=== PATIENT | male | born 1965 | race Caucasian/White ===

== ENCOUNTER 2020-05-31 09:24 | Inpatient (IN) ==
[2020-05-31] MEDS ORDERED: VANCOMYCIN INJ 1,000 MG in SODIUM CHLORIDE 0.9% 250 ML IV ONE (09:45)
[2020-05-31] MEDS ORDERED: GLUCAGON 1 MG VIAL IM PRN (09:45)
[2020-05-31] MEDS ORDERED: DEXTROSE 50% 25 GM/50 ML VIAL IV PRN (09:45)
[2020-05-31 10:40] LABS: Basophils % 0.5 % (0.0-0.8); Eosinophils # 0.2 10*3/uL (0.0-0.87); Hematocrit 46.4 VOL% (42.0-52.0); Hemoglobin 15.3 GM/DL (14.0-18.0); Immature Granulocytes % 0.5 %; Immature Granulocytes Absolute 0.04 #; Lymphocytes # 1.9 10*3/uL (1.4-4.0); Lymphocytes % 24.8 % (21.2-54.2); Mean Corpuscular Volume 90.1 FL (87-102); Mean Platelet Volume 10.2 FL (9.6-12.0); Monocytes % 9.6 % (1.7-12.7); Neutrophils % 62.6 % (38.7-73.9); Platelet Count 198 T/CUMM (130-400); Red Blood Count 5.15 MC/CUMM (3.8-5.5); White Blood Count 7.6 T/CUMM (4-12)
[2020-05-31] MEDS ORDERED: FAMOTIDINE 20 MG TABLET PO ONE (11:01)
[2020-05-31] MEDS ORDERED: DIAZEPAM 5 MG TABLET PO ONE (11:01)
[2020-05-31 11:04] LABS: Bilirubin,Total 0.6 MG/DL (0.2-1.0); Calcium 9.4 MG/DL (8.5-10.1); Osmolality,Calculated 271.2 MOS/KG (273-304); Potassium 4.5 MMOL/L (3.5-5.1); Total Protein 7.6 G/DL (6.4-8.3)
[2020-05-31 11:56] LABS: ABG Base Excess 1.3 MMOL/L (-2.5-2.5); ABG HCO3 25.5 MMOL/L (20-26); ABG Oxygen Saturation 97.1 % (95-100); ABG PCO2 41.8 MM HG (35-48); ABG PH 7.406 (7.35-7.45); ABG PO2 94.6 MM HG (80-95); ABG TCO2 22.1 MMOL/L (23-27)
[2020-05-31] MEDS ORDERED: CLORAZEPATE 3.75 MG TABLET PO PRN (13:22)
[2020-05-31] MEDS ORDERED: ZALEPLON 5 MG CAPSULE PO PRN (13:23)
[2020-05-31] MEDS: CHLORHEXIDINE 4% SOLN 118 ML BOTTLE TOP SCH ×2 (16:42→20:59)
[2020-05-31] MEDS: CHLORHEXIDINE 0.12% ORAL RINSE 60 ML BOTTLE SWISH/SPIT SCH (20:55)
[2020-05-31] MEDS: SODIUM CHLORIDE 0.9% 1,000 ML IV SCH (20:55)
[2020-05-31] MEDS: hydrALAZINE 25 MG TABLET PO SCH (20:56)
[2020-05-31] MEDS ORDERED: PANTOPRAZOLE 40 MG TABLET PO SCH (21:00)
[2020-05-31] MEDS ORDERED: amLODIPine 10 MG TABLET PO SCH (21:00)
[2020-05-31] MEDS ORDERED: rOPINIRole 1 MG TABLET PO SCH (21:00)
[2020-05-31] MEDS ORDERED: MELOXICAM 7.5 MG TABLET PO SCH (21:00)
[2020-06-01] MEDS ORDERED: PAPAVERINE 60 MG/2 ML VIAL ONE (04:20)
[2020-06-01] MEDS ORDERED: VANCOMYCIN 500 MG VIAL ONE (04:21)
[2020-06-01] MEDS ORDERED: VANCOMYCIN 1,000 MG VIAL ONE (04:21)
[2020-06-01] MEDS ORDERED: AMINOCAPROIC ACID 5,000 MG/20 ML VIAL ONE ×4 (05:40→05:41)
[2020-06-01] MEDS ORDERED: MIDAZOLAM 10 MG/2 ML VIAL ONE ×4 (05:45)
[2020-06-01] MEDS ORDERED: CALCIUM CHLORIDE 1,000 MG/10 ML VIAL IV ONE ×3 (05:45→11:12)
[2020-06-01] MEDS ORDERED: ETOMIDATE 40 MG/20 ML VIAL IV ONE ×2 (05:45→05:49)
[2020-06-01] MEDS ORDERED: VECURONIUM 10 MG VIAL IV ONE (05:45)
[2020-06-01] MEDS ORDERED: LIDOCAINE 2% 5 ML VIAL ONE ×2 (05:45→10:33)
[2020-06-01] MEDS ORDERED: SUFentanil 250 MCG/5 ML AMP ONE ×4 (05:46)
[2020-06-01] MEDS ORDERED: SEVOFLURANE 1 UNIT/15 MINUTE INH ONE (05:49)
[2020-06-01] MEDS ORDERED: MINERAL OIL/PETROLATUM OPH OINT 3.5 GM TUBE ONE (05:57)
[2020-06-01] MEDS ORDERED: FAMOTIDINE 20 MG TABLET PO ONE (06:00)
[2020-06-01] MEDS ORDERED: VANCOMYCIN INJ 1,000 MG in SODIUM CHLORIDE 0.9% 250 ML IV ONE (06:00)
[2020-06-01] MEDS ORDERED: DIAZEPAM 5 MG TABLET PO ONE ×2 (06:00)
[2020-06-01] MEDS ORDERED: EPINEPHrine 1 MG/10 ML SYRINGE ONE ×2 (07:02→07:59)
[2020-06-01 07:42] LABS: ABG HCO3 24.4 MMOL/L (20-26); ABG Oxygen Saturation 99.9 % (95-100); ABG PCO2 34.1 MM HG (35-48); ABG PH 7.443 (7.35-7.45); ABG TCO2 19.9 MMOL/L (23-27); Glucose Heart Surgery 141 MG/DL (74-106); Hematocrit Heart Surgery 44.5 PERCENT (42-52); Hemoglobin Heart Surgery 14.5 G/DL (14.0-18.0); Ionized Calcium Arterial 1.26 MMOL/L (1.21-1.46); PCO2 Patient Temp Arterial 34.1 MMHG; PH Patient Temp Arterial 7.443; Patient Temperature 37 CELCIUS; Potassium Heart/CVR 3.9 MMOL/L (3.5-5.1); Sodium Heart/CVR 139 MMOL/L (135-145)
[2020-06-01] MEDS ORDERED: NITROPRUSSIDE 50 MG/2 ML VIAL ONE (07:57)
[2020-06-01] MEDS ORDERED: POTASSIUM CHLORIDE RIDER 100 ML IV ONE (07:57)
[2020-06-01] MEDS ORDERED: PHENYLEPHRINE DRIP 40 MG/250 ML PREMIX IV ONE (07:58)
[2020-06-01] MEDS ORDERED: ATROPINE 1 MG/10 ML SYRINGE ONE (07:59)
[2020-06-01] MEDS ORDERED: LIDOCAINE 100 MG/5 ML SYRINGE ONE (07:59)
[2020-06-01] MEDS ORDERED: ALBUMIN 5% 12.5 GM/250 ML VIAL IV ONE ×2 (07:59)
[2020-06-01 08:04] LABS: Bacteria,Urine Occasional /HPF (Few); Bilirubin,Urine Negative (Negative); Blood, Urine Small mg/dL (Negative); Glucose,Urine (UA) Negative (Negative); Ketones,Urine Negative (Negative); Mucus,Urine Few /LPF (Occasional); Nitrite,Urine Negative (Negative); Protein,Urine Negative; RBC,Urine 2 /HPF (0-4); Squamous Epithelial Cell,Urine Occasional /HPF (0-10); Urine Appearance CLEAR (Clear); Urine Color Yellow (Yellow); Urine Specific Gravity 1.026 (1.001-1.035); Urine Urobilinogen < 2.0 EU/DL (0.2-1.0); WBC,Urine <1 /HPF (0-6)
[2020-06-01 08:33] LABS: Hematocrit Heart Surgery 34.4 PERCENT (42-52); Hemoglobin Heart Surgery 11.2 G/DL (14.0-18.0); PCO2 Patient Temp Venous 35.6 MM HG; PH Patient Temp Venous 7.453; Potassium Heart/CVR 4.3 MMOL/L (3.5-5.1); VBG Base Excess 1.3 MEQ/L (0-4); VBG HCO3 25.2 MEQ/L (24-28); VBG Oxygen Saturation 80.6 %; VBG PCO2 41.1 MMHG (41-51); VBG PH 7.409; VBG PO2 45.5 MMHG (17-40); VBG Total CO2 23.4 MMOL/L
[2020-06-01] MEDS ORDERED: NITROGLYCERIN DRIP 50 MG/250 ML BOTTLE IV ONE (08:37)
[2020-06-01] MEDS ORDERED: PHENYLEPHRINE DRIP 20 MG/250 ML PREMIX IV ONE (08:37)
[2020-06-01] MEDS ORDERED: HEPARIN/NACL 0.9% 2 UNITS/ML 500 ML IV ONE (08:37)
[2020-06-01 09:07] LABS: Hemoglobin Heart Surgery 11.9 G/DL (14.0-18.0); PCO2 Patient Temp Venous 35.7 MM HG; PH Patient Temp Venous 7.468; PO2 Patient Temp Venous 37.5 MM HG; Potassium Heart/CVR 5.1 MMOL/L (3.5-5.1); VBG Base Excess 1.5 MEQ/L (0-4); VBG Oxygen Saturation 80.6 %; VBG PCO2 40.7 MMHG (41-51); VBG PH 7.423; VBG PO2 46.3 MMHG (17-40); VBG Total CO2 27.2 MMOL/L
[2020-06-01 09:38] LABS: Hematocrit Heart Surgery 38.9 PERCENT (42-52); Hemoglobin Heart Surgery 12.6 G/DL (14.0-18.0); PH Patient Temp Venous 7.461; PO2 Patient Temp Venous 38.5 MM HG; VBG Base Excess 2.1 MEQ/L (0-4); VBG HCO3 25.9 MEQ/L (24-28); VBG Oxygen Saturation 82.3 %; VBG PCO2 41.7 MMHG (41-51); VBG PH 7.417; VBG PO2 47.4 MMHG (17-40); VBG Total CO2 23.7 MMOL/L
[2020-06-01 09:40] LABS: Potassium Heart/CVR 6.2 MMOL/L (3.5-5.1)
[2020-06-01 10:08] LABS: Hemoglobin Heart Surgery 12.6 G/DL (14.0-18.0); PCO2 Patient Temp Venous 41.8 MM HG; PH Patient Temp Venous 7.402; PO2 Patient Temp Venous 47.2 MM HG; VBG Base Excess 0.6 MEQ/L (0-4); VBG HCO3 25.4 MEQ/L (24-28); VBG Oxygen Saturation 80.1 %; VBG PCO2 41.8 MMHG (41-51); VBG PH 7.402; VBG PO2 47.2 MMHG (17-40); VBG Total CO2 26.7 MMOL/L
[2020-06-01] MEDS ORDERED: methylPREDNISolone SOD SUC 1,000 MG/8 ML VIAL ONE (10:33)
[2020-06-01] MEDS ORDERED: ALBUMIN 25% 25 GM/100 ML VIAL IV ONE (10:33)
[2020-06-01] MEDS ORDERED: MANNITOL 100 GM/500 ML BAG IV ONE (10:33)
[2020-06-01] MEDS ORDERED: DEXTROSE 5% KCL 20 MEQ 20 MEQ/1,000 ML BAG IV ONE (10:33)
[2020-06-01] MEDS ORDERED: HEPARIN 10,000 UNIT/10 ML VIAL ONE (10:33)
[2020-06-01] MEDS ORDERED: MAGNESIUM SULFATE 5 GM/10 ML VIAL IV ONE (10:33)
[2020-06-01] MEDS ORDERED: PROTAMINE SULFATE 250 MG/25 ML VIAL IV ONE (10:33)
[2020-06-01] MEDS ORDERED: SODIUM BICARBONATE 50 MEQ/50 ML VIAL IV ONE (10:34)
[2020-06-01] MEDS ORDERED: FUROSEMIDE 20 MG/2 ML VIAL ONE (10:34)
[2020-06-01 10:39] LABS: ABG Base Excess -0.5 MMOL/L (-2.5-2.5); ABG HCO3 24.1 MMOL/L (20-26); ABG Oxygen Saturation 99.4 % (95-100); ABG PH 7.371 (7.35-7.45); ABG TCO2 21.9 MMOL/L (23-27); Glucose Heart Surgery 161 MG/DL (74-106); Hematocrit Heart Surgery 39.5 PERCENT (42-52); Hemoglobin Heart Surgery 12.8 G/DL (14.0-18.0); Ionized Calcium Arterial 1.39 MMOL/L (1.21-1.46); PH Patient Temp Arterial 7.371; Patient Temperature 37 CELCIUS; Potassium Heart/CVR 4.5 MMOL/L (3.5-5.1); Sodium Heart/CVR 135 MMOL/L (135-145)
[2020-06-01] MEDS ORDERED: THROMBIN TOPICAL (RECOMBINANT) 5,000 UNIT VIAL TOP ONE (10:48)
[2020-06-01] MEDS: CHLORHEXIDINE 4% SOLN 118 ML BOTTLE TOP SCH (11:13)
[2020-06-01] MEDS: SODIUM CHLORIDE 0.9% 1,000 ML IV SCH (11:13)
[2020-06-01] MEDS: hydrALAZINE 25 MG TABLET PO SCH (11:13)
[2020-06-01] MEDS: CHLORHEXIDINE 0.12% ORAL RINSE 60 ML BOTTLE SWISH/SPIT SCH (11:13)
[2020-06-01] MEDS: ALBUMIN 5% 12.5 GM in PREMIX 1 EACH IV PRN ×4 (12:00→16:15)
[2020-06-01] MEDS ORDERED: LACTATED RINGERS 1,000 ML IV ONE (12:00)
[2020-06-01] MEDS ORDERED: PROTAMINE SULFATE 50 MG/5 ML VIAL IV ONE ×2 (12:00→12:02)
[2020-06-01] MEDS ORDERED: MIDAZOLAM 2 MG/2 ML VIAL ONE (12:00)
[2020-06-01] MEDS ORDERED: MAGNESIUM SULF RIDER 4 GM in PREMIX 1 EACH IV PRN (12:05)
[2020-06-01] MEDS ORDERED: POTASSIUM CHLORIDE RIDER 10 MEQ in PREMIX 1 EACH IV PRN (12:05)
[2020-06-01] MEDS ORDERED: MAGNESIUM SULF RIDER 2 GM in PREMIX 1 EACH IV PRN (12:05)
[2020-06-01] MEDS ORDERED: INSULIN REGULAR 100 UNIT/ML IV ONE (12:05)
[2020-06-01] MEDS ORDERED: CHLORHEXIDINE 4% SOLN 118 ML BOTTLE TOP PRN (12:05)
[2020-06-01] MEDS ORDERED: LACTATED RINGERS 250 ML IV PRN (12:05)
[2020-06-01] MEDS ORDERED: INSULIN REGULAR 100 UNIT/ML IV PRN (12:05)
[2020-06-01] MEDS ORDERED: VECURONIUM 10 MG VIAL IV PRN ×2 (12:05)
[2020-06-01] MEDS ORDERED: MORPHINE 10 MG/1 ML VIAL IV PRN (12:05)
[2020-06-01] MEDS ORDERED: PHENYLEPHRINE DRIP 40 MG/250 ML PREMIX IV PRN (12:05)
[2020-06-01] MEDS ORDERED: MIDAZOLAM 10 MG/2 ML VIAL IV PRN (12:05)
[2020-06-01] MEDS ORDERED: NITROPRUSSIDE 100 MG in DEXTROSE 5% 250 ML IV PRN (12:05)
[2020-06-01] MEDS ORDERED: DEXTROSE 50% 25 GM/50 ML VIAL IV PRN ×2 (12:05)
[2020-06-01] MEDS ORDERED: CALCIUM CHLORIDE 1,000 MG/10 ML SYRINGE IV PRN (12:05)
[2020-06-01] MEDS ORDERED: MIDAZOLAM 2 MG/2 ML VIAL IV PRN (12:05)
[2020-06-01] MEDS ORDERED: ACETAMINOPHEN 650 MG SUPP RECTAL PRN (12:05)
[2020-06-01] MEDS ORDERED: POTASSIUM CHLORIDE RIDER 20 MEQ in PREMIX 1 EACH IV PRN (12:05)
[2020-06-01] MEDS ORDERED: INSULIN REGULAR DRIP 100 ML IV SCH (12:05)
[2020-06-01] MEDS ORDERED: ONDANSETRON 4 MG/2 ML VIAL IV PRN (12:05)
[2020-06-01] MEDS ORDERED: SODIUM CHLORIDE 0.45% 1,000 ML IV SCH ×2 (12:05)
[2020-06-01 12:10] LABS: ABG Base Excess -1.2 MMOL/L (-2.5-2.5); ABG HCO3 23.4 MMOL/L (20-26); ABG Oxygen Saturation 98.2 % (95-100); ABG PCO2 29.8 MM HG (35-48); ABG PH 7.466 (7.35-7.45); ABG PO2 99.2 MM HG (80-95); ABG TCO2 18.9 MMOL/L (23-27); Glucose Heart Surgery 141 MG/DL (74-106); Hematocrit Heart Surgery 37.8 PERCENT (42-52); Hemoglobin Heart Surgery 12.3 G/DL (14.0-18.0); Potassium Heart/CVR 4.1 MMOL/L (3.5-5.1)
[2020-06-01 12:19] LABS: INR 1.2; PT Patient Result 12.6 SECS (9.8-11.9); Partial Thromboplastin Time 27.7 SECS (23.9-33.8)
[2020-06-01 12:28] LABS: Albumin 3.1 G/DL (3.4-5.0); Bilirubin,Total 0.8 MG/DL (0.2-1.0); Calcium 9.4 MG/DL (8.5-10.1); Osmolality,Calculated 279.7 MOS/KG (273-304); Potassium 4.3 MMOL/L (3.5-5.1); Total Protein 5.6 G/DL (6.4-8.3)
[2020-06-01 12:29] LABS: CKMB % 8.4 %
[2020-06-01 12:39] LABS: Troponin I 7.11 NG/ML (0.00-0.045)
[2020-06-01] MEDS: LACTATED RINGERS 1,000 ML IV PRN ×3 (13:00→16:04)
[2020-06-01 13:23] LABS: Basophils % 0.3 % (0.0-0.8); Eosinophils # 0.1 10*3/uL (0.0-0.87); Eosinophils % 0.4 % (0.00-10.9); Hematocrit 37.5 VOL% (42.0-52.0); Hemoglobin 12.2 GM/DL (14.0-18.0); Immature Granulocytes Absolute 0.15 #; Lymphocytes # 1.2 10*3/uL (1.4-4.0); Mean Corpuscular HGB Conc 32.5 GM/DL (32-36); Mean Corpuscular Volume 91.7 FL (87-102); Mean Platelet Volume 10.4 FL (9.6-12.0); Monocytes % 4.9 % (1.7-12.7); Neutrophils % 85.4 % (38.7-73.9); Platelet Count 168 T/CUMM (130-400); Red Blood Count 4.09 MC/CUMM (3.8-5.5); Red Cell Distribution Width 14.1 % (9.3-17.3); White Blood Count 15.5 T/CUMM (4-12)
[2020-06-01 14:43] LABS: ABG Base Excess -1.7 MMOL/L (-2.5-2.5); ABG HCO3 21.5 MMOL/L (20-26); ABG Oxygen Saturation 98.2 % (95-100); ABG PCO2 31.3 MM HG (35-48); ABG PH 7.454 (7.35-7.45); ABG PO2 119.9 MM HG (80-95); ABG TCO2 22.4 MMOL/L (23-27); Glucose Heart Surgery 171 MG/DL (74-106); Hemoglobin Heart Surgery 11.3 G/DL (14.0-18.0); Potassium Heart/CVR 4.3 MMOL/L (3.5-5.1)
[2020-06-01 17:29] LABS: ABG Base Excess -2.7 MMOL/L (-2.5-2.5); ABG HCO3 22.1 MMOL/L (20-26); ABG Oxygen Saturation 95.8 % (95-100); ABG PCO2 38.9 MM HG (35-48); ABG PH 7.366 (7.35-7.45); ABG PO2 84.3 MM HG (80-95); ABG TCO2 20.2 MMOL/L (23-27); Glucose Heart Surgery 216 MG/DL (74-106); Hematocrit Heart Surgery 32.6 PERCENT (42-52); Hemoglobin Heart Surgery 10.6 G/DL (14.0-18.0); Potassium Heart/CVR 4.6 MMOL/L (3.5-5.1)
[2020-06-01] MEDS: MORPHINE 4 MG/1 ML VIAL IV PRN ×2 (19:21→22:31)
[2020-06-01 19:24] LABS: ABG Base Excess -4.7 MMOL/L (-2.5-2.5); ABG HCO3 20.4 MMOL/L (20-26); ABG Oxygen Saturation 92.8 % (95-100); ABG PCO2 47.6 MM HG (35-48); ABG PH 7.278 (7.35-7.45); ABG PO2 78.9 MM HG (80-95); ABG TCO2 20.3 MMOL/L (23-27); Glucose Heart Surgery 226 MG/DL (74-106); Hematocrit Heart Surgery 34.2 PERCENT (42-52); Hemoglobin Heart Surgery 11.1 G/DL (14.0-18.0); Potassium Heart/CVR 4.6 MMOL/L (3.5-5.1)
[2020-06-01] MEDS ORDERED: FUROSEMIDE 40 MG/4 ML VIAL IV ONE (19:31)
[2020-06-01] MEDS: ALBUTEROL/IPRATROPIUM 3 ML NEB RESP TX SCH (19:43)
[2020-06-01 19:50] LABS: Troponin I 10.8 NG/ML (0.00-0.045)
[2020-06-01] MEDS ORDERED: CHLORHEXIDINE 0.12% ORAL RINSE 60 ML BOTTLE SWISH/SPIT SCH (21:00)
[2020-06-01] MEDS ORDERED: rOPINIRole 4 MG TABLET PO SCH (21:00)
[2020-06-01] MEDS: VANCOMYCIN INJ 1,000 MG in SODIUM CHLORIDE 0.9% 250 ML IV SCH (23:13)
[2020-06-02] MEDS: ALBUTEROL/IPRATROPIUM 3 ML NEB RESP TX SCH ×4 (01:29→19:42)
[2020-06-02] MEDS: MORPHINE 4 MG/1 ML VIAL IV PRN ×3 (03:48→07:36)
[2020-06-02 04:05] LABS: ABG HCO3 23.5 MMOL/L (20-26); ABG Oxygen Saturation 91.4 % (95-100); ABG PCO2 42.1 MM HG (35-48); ABG PH 7.369 (7.35-7.45); ABG PO2 64.5 MM HG (80-95); ABG TCO2 22.1 MMOL/L (23-27); Glucose Heart Surgery 138 MG/DL (74-106); Hematocrit Heart Surgery 31.6 PERCENT (42-52); Hemoglobin Heart Surgery 10.2 G/DL (14.0-18.0); Potassium Heart/CVR 4.6 MMOL/L (3.5-5.1)
[2020-06-02 04:09] LABS: Basophils % 0.1 % (0.0-0.8); Hematocrit 30.8 VOL% (42.0-52.0); Immature Granulocytes % 0.7 %; Immature Granulocytes Absolute 0.13 #; Lymphocytes # 0.6 10*3/uL (1.4-4.0); Lymphocytes % 3.2 % (21.2-54.2); Mean Corpuscular HGB Conc 32.1 GM/DL (32-36); Mean Corpuscular Volume 92.8 FL (87-102); Mean Platelet Volume 10.1 FL (9.6-12.0); Monocytes % 6.3 % (1.7-12.7); Neutrophils % 89.7 % (38.7-73.9); Platelet Count 168 T/CUMM (130-400); Red Blood Count 3.32 MC/CUMM (3.8-5.5); Red Cell Distribution Width 14.3 % (9.3-17.3); White Blood Count 19.7 T/CUMM (4-12)
[2020-06-02 04:20] LABS: Hemoglobin 9.9 GM/DL (14.0-18.0)
[2020-06-02 04:27] LABS: Albumin 3.9 G/DL (3.4-5.0); Bilirubin,Direct 0.14 MG/DL (0.0-0.20); Bilirubin,Total 0.7 MG/DL (0.2-1.0); Calcium 8.7 MG/DL (8.5-10.1); Osmolality,Calculated 286.3 MOS/KG (273-304); Potassium 4.6 MMOL/L (3.5-5.1); Total Protein 6.2 G/DL (6.4-8.9)
[2020-06-02 04:28] LABS: CKMB % 11.3 %
[2020-06-02 04:44] LABS: Band Neutrophils 1 % (0-10); Hypochromasia 1+; Lymphocytes 8 % (20-55); Microcytosis 1+; Segmented Neutrophils 90 % (50-85); Total Cells Counted 100
[2020-06-02] MEDS ORDERED: FUROSEMIDE 40 MG/4 ML VIAL IV ONE (05:11)
[2020-06-02] MEDS: oxyCODONE/ACETAMINOPHEN 5-325 MG TABLET PO PRN ×4 (08:18→21:01)
[2020-06-02] MEDS ORDERED: GLUCAGON 1 MG VIAL IM PRN (08:50)
[2020-06-02] MEDS ORDERED: ONDANSETRON 4 MG/2 ML VIAL IV PRN (08:50)
[2020-06-02] MEDS ORDERED: ALUMINUM/MAGNES/SIMETH MAX STR 30 ML UDCUP PO PRN (08:50)
[2020-06-02] MEDS ORDERED: POTASSIUM CHLORIDE 20 MEQ TABLET PO PRN (08:50)
[2020-06-02] MEDS ORDERED: ACETAMINOPHEN 325 MG TABLET PO PRN (08:50)
[2020-06-02] MEDS ORDERED: MAGNESIUM HYDROXIDE SUSP 30 ML UDCUP PO PRN (08:50)
[2020-06-02] MEDS ORDERED: DEXTROSE 50% 25 GM/50 ML VIAL IV PRN (08:50)
[2020-06-02] MEDS ORDERED: MAGNESIUM SULF RIDER 2 GM in PREMIX 1 EACH IV PRN (08:50)
[2020-06-02] MEDS ORDERED: MAGNESIUM SULF RIDER 4 GM in PREMIX 1 EACH IV PRN (08:50)
[2020-06-02] MEDS: ASPIRIN EC 325 MG TABLET PO SCH (09:06)
[2020-06-02] MEDS: PANTOPRAZOLE 40 MG TABLET PO SCH (09:06)
[2020-06-02] MEDS: DOCUSATE SODIUM 100 MG CAPSULE PO SCH (09:06)
[2020-06-02] MEDS: FERROUS SULFATE 325 MG TABLET PO SCH (09:50)
[2020-06-02] MEDS: SODIUM CHLOR 0.45% KCL 20 MEQ 20 MEQ/1,000 ML BAG IV SCH (10:00)
[2020-06-02] MEDS: CHLORHEXIDINE 0.12% ORAL RINSE 60 ML BOTTLE SWISH/SPIT SCH ×2 (10:01→21:44)
[2020-06-02] MEDS: VANCOMYCIN INJ 1,000 MG in SODIUM CHLORIDE 0.9% 250 ML IV SCH ×2 (12:12→22:46)
[2020-06-02 13:07] LABS: CKMB % 8.5 %
[2020-06-02 13:21] LABS: Troponin I 13.4 NG/ML (0.00-0.045)
[2020-06-02] MEDS: ZALEPLON 5 MG CAPSULE PO PRN (21:05)
[2020-06-03] MEDS: ALBUTEROL/IPRATROPIUM 3 ML NEB RESP TX SCH ×4 (01:45→19:42)
[2020-06-03] MEDS: oxyCODONE/ACETAMINOPHEN 5-325 MG TABLET PO PRN ×4 (01:56→22:13)
[2020-06-03] MEDS ORDERED: FUROSEMIDE 40 MG/4 ML VIAL IV ONE ×2 (06:00→06:54)
[2020-06-03 06:10] LABS: Basophils % 0.1 % (0.0-0.8); Hematocrit 26.8 VOL% (42.0-52.0); Hemoglobin 8.7 GM/DL (14.0-18.0); Immature Granulocytes % 1.1 %; Immature Granulocytes Absolute 0.19 #; Lymphocytes # 1.2 10*3/uL (1.4-4.0); Lymphocytes % 6.7 % (21.2-54.2); Mean Corpuscular HGB Conc 32.5 GM/DL (32-36); Mean Corpuscular Volume 93.1 FL (87-102); Mean Platelet Volume 11.1 FL (9.6-12.0); Monocytes % 9.9 % (1.7-12.7); Neutrophils % 82.2 % (38.7-73.9); Platelet Count 125 T/CUMM (130-400); Red Blood Count 2.88 MC/CUMM (3.8-5.5); Red Cell Distribution Width 14.6 % (9.3-17.3); White Blood Count 17.9 T/CUMM (4-12)
[2020-06-03] MEDS ORDERED: HYDROmorphone 2 MG/1 ML VIAL IV PRN (06:26)
[2020-06-03 06:30] LABS: Albumin 3.4 G/DL (3.4-5.0); Bilirubin,Direct 0.14 MG/DL (0.0-0.20); Bilirubin,Total 0.5 MG/DL (0.2-1.0); Calcium 8.4 MG/DL (8.5-10.1); Osmolality,Calculated 278.1 MOS/KG (273-304); Potassium 4.5 MMOL/L (3.5-5.1); Total Protein 6.5 G/DL (5.0-7.5)
[2020-06-03 06:34] LABS: Albumin 3.5 G/DL (3.4-5.0); Bilirubin,Direct 0.16 MG/DL (0.0-0.20); Bilirubin,Indirect 0.7 MG/DL (0.0-1.0); Bilirubin,Total 0.9 MG/DL (0.2-1.0); CKMB % 3.8 %; Total Protein 6.1 G/DL (5.0-7.5)
[2020-06-03 06:37] LABS: Troponin I 7.96 NG/ML (0.00-0.045)
[2020-06-03] MEDS: DOCUSATE SODIUM 100 MG CAPSULE PO SCH (09:14)
[2020-06-03] MEDS: FERROUS SULFATE 325 MG TABLET PO SCH (09:15)
[2020-06-03] MEDS: ASPIRIN EC 325 MG TABLET PO SCH (09:15)
[2020-06-03] MEDS: PANTOPRAZOLE 40 MG TABLET PO SCH (09:15)
[2020-06-03] MEDS: SODIUM CHLOR 0.45% KCL 20 MEQ 20 MEQ/1,000 ML BAG IV SCH (09:24)
[2020-06-03] MEDS: VANCOMYCIN INJ 1,000 MG in SODIUM CHLORIDE 0.9% 250 ML IV SCH (11:00)
[2020-06-03] MEDS: CHLORHEXIDINE 0.12% ORAL RINSE 60 ML BOTTLE SWISH/SPIT SCH ×2 (13:03→21:58)
[2020-06-04] MEDS: ALBUTEROL/IPRATROPIUM 3 ML NEB RESP TX SCH ×4 (01:43→19:26)
[2020-06-04] MEDS: ZALEPLON 5 MG CAPSULE PO PRN (02:01)
[2020-06-04 05:54] LABS: Basophils % 0.1 % (0.0-0.8); Eosinophils % 0.1 % (0.00-10.9); Hemoglobin 7.9 GM/DL (14.0-18.0); Immature Granulocytes % 0.8 %; Immature Granulocytes Absolute 0.13 #; Lymphocytes # 1.2 10*3/uL (1.4-4.0); Lymphocytes % 7.8 % (21.2-54.2); Mean Corpuscular HGB Conc 31.6 GM/DL (32-36); Mean Corpuscular Volume 95.1 FL (87-102); Mean Platelet Volume 11.1 FL (9.6-12.0); Monocytes % 10.7 % (1.7-12.7); Neutrophils % 80.5 % (38.7-73.9); Platelet Count 117 T/CUMM (130-400); Red Blood Count 2.63 MC/CUMM (3.8-5.5); Red Cell Distribution Width 14.6 % (9.3-17.3); White Blood Count 15.4 T/CUMM (4-12)
[2020-06-04 06:20] LABS: Albumin 3.1 G/DL (3.4-5.0); Bilirubin,Direct 0.14 MG/DL (0.0-0.20); Bilirubin,Total 0.5 MG/DL (0.2-1.0); Calcium 8.7 MG/DL (8.5-10.1); Osmolality,Calculated 268.5 MOS/KG (273-304); Potassium 4.3 MMOL/L (3.5-5.1); Total Protein 6.9 G/DL (5.0-7.5)
[2020-06-04 06:22] LABS: Alanine Aminotransferase 38 U/L (16-61); Albumin 3.2 G/DL (3.4-5.0); Alkaline Phosphatase 45 U/L (45-117); Aspartate Amino Transferase 35 U/L (0-37); Bilirubin,Indirect 0.4 MG/DL (0.0-1.0); Total Protein 6.9 G/DL (5.0-7.5)
[2020-06-04] MEDS ORDERED: FUROSEMIDE 40 MG/4 ML VIAL IV SCH (09:00)
[2020-06-04] MEDS: FERROUS SULFATE 325 MG TABLET PO SCH (09:45)
[2020-06-04] MEDS: DOCUSATE SODIUM 100 MG CAPSULE PO SCH (09:45)
[2020-06-04] MEDS: ASPIRIN EC 325 MG TABLET PO SCH (09:45)
[2020-06-04] MEDS: oxyCODONE/ACETAMINOPHEN 5-325 MG TABLET PO PRN ×2 (09:46→21:04)
[2020-06-04] MEDS: PANTOPRAZOLE 40 MG TABLET PO SCH (09:46)
[2020-06-04] MEDS: METOPROLOL TARTRATE 25 MG TABLET PO SCH ×2 (15:33→21:03)
[2020-06-04] MEDS: CHLORHEXIDINE 0.12% ORAL RINSE 60 ML BOTTLE SWISH/SPIT SCH ×2 (15:33→21:07)
[2020-06-04] MEDS: ASCORBIC ACID 500 MG TABLET PO SCH ×2 (15:33→21:03)
[2020-06-04] MEDS: ROSUVASTATIN 20 MG TABLET PO SCH (21:04)
[2020-06-04] MEDS: rOPINIRole 4 MG TABLET PO SCH (21:04)
[2020-06-05] MEDS: oxyCODONE/ACETAMINOPHEN 5-325 MG TABLET PO PRN ×2 (00:57→20:20)
[2020-06-05] MEDS: ALBUTEROL/IPRATROPIUM 3 ML NEB RESP TX SCH ×5 (00:59→19:55)
[2020-06-05 05:51] LABS: Basophils % 0.1 % (0.0-0.8); Eosinophils % 0.1 % (0.00-10.9); Hematocrit 25.2 VOL% (42.0-52.0); Hemoglobin 8.1 GM/DL (14.0-18.0); Immature Granulocytes Absolute 0.15 #; Lymphocytes # 1.6 10*3/uL (1.4-4.0); Lymphocytes % 10.7 % (21.2-54.2); Mean Corpuscular HGB Conc 32.1 GM/DL (32-36); Mean Corpuscular Volume 92.6 FL (87-102); Mean Platelet Volume 11.2 FL (9.6-12.0); NRBC # 0.03 10*3/uL; Neutrophils % 80.1 % (38.7-73.9); Platelet Count 148 T/CUMM (130-400); Red Blood Count 2.72 MC/CUMM (3.8-5.5); Red Cell Distribution Width 14.6 % (9.3-17.3); White Blood Count 15.1 T/CUMM (4-12)
[2020-06-05 06:51] LABS: Osmolality,Calculated 273.4 MOS/KG (273-304); Potassium 4.3 MMOL/L (3.5-5.1)
[2020-06-05] MEDS ORDERED: LACTULOSE 20 GM/30 ML UDCUP PO PRN (08:02)
[2020-06-05] MEDS ORDERED: LACTULOSE 20 GM/30 ML UDCUP PO ONE (08:02)
[2020-06-05] MEDS: METOPROLOL TARTRATE 25 MG TABLET PO SCH ×2 (09:55→20:15)
[2020-06-05] MEDS: ASPIRIN EC 325 MG TABLET PO SCH (09:55)
[2020-06-05] MEDS: FERROUS SULFATE 325 MG TABLET PO SCH (09:56)
[2020-06-05] MEDS: ASCORBIC ACID 500 MG TABLET PO SCH ×2 (09:56→20:14)
[2020-06-05] MEDS: DOCUSATE SODIUM 100 MG CAPSULE PO SCH (09:56)
[2020-06-05] MEDS: PANTOPRAZOLE 40 MG TABLET PO SCH (09:56)
[2020-06-05] MEDS: POLYETHYLENE GLYCOL POWDER 17 GM PACK PO SCH (09:58)
[2020-06-05] MEDS: FUROSEMIDE 40 MG TABLET PO SCH (10:02)
[2020-06-05] MEDS: POTASSIUM CHLORIDE 10 MEQ TABLET PO SCH (10:02)
[2020-06-05] MEDS: CHLORHEXIDINE 0.12% ORAL RINSE 60 ML BOTTLE SWISH/SPIT SCH ×2 (10:08→20:16)
[2020-06-05] MEDS: AMIODARONE 200 MG TABLET PO SCH ×2 (18:06→20:15)
[2020-06-05] MEDS: amLODIPine 5 MG TABLET PO SCH (20:14)
[2020-06-05] MEDS: rOPINIRole 4 MG TABLET PO SCH (20:14)
[2020-06-05] MEDS: ROSUVASTATIN 20 MG TABLET PO SCH (20:15)
[2020-06-05] MEDS: ZALEPLON 5 MG CAPSULE PO PRN (20:16)
[2020-06-06] MEDS: ALBUTEROL/IPRATROPIUM 3 ML NEB RESP TX SCH ×4 (00:27→20:00)
[2020-06-06] MEDS: oxyCODONE/ACETAMINOPHEN 5-325 MG TABLET PO PRN ×2 (01:14→21:03)
[2020-06-06 06:03] LABS: Basophils % 0.2 % (0.0-0.8); Eosinophils # 0.1 10*3/uL (0.0-0.87); Eosinophils % 0.8 % (0.00-10.9); Hematocrit 27.4 VOL% (42.0-52.0); Hemoglobin 8.5 GM/DL (14.0-18.0); Immature Granulocytes Absolute 0.26 #; Lymphocytes # 2.1 10*3/uL (1.4-4.0); Mean Corpuscular Volume 95.5 FL (87-102); Mean Platelet Volume 10.6 FL (9.6-12.0); Monocytes % 10.3 % (1.7-12.7); Neutrophils % 70.7 % (38.7-73.9); Platelet Count 192 T/CUMM (130-400); Red Blood Count 2.87 MC/CUMM (3.8-5.5); Red Cell Distribution Width 14.4 % (9.3-17.3)
[2020-06-06 06:22] LABS: Calcium 8.7 MG/DL (8.5-10.1); Osmolality,Calculated 277.8 MOS/KG (273-304); Potassium 4.1 MMOL/L (3.5-5.1)
[2020-06-06 06:39] LABS: Alanine Aminotransferase 64 U/L (16-61); Albumin 3.2 G/DL (3.4-5.0); Alkaline Phosphatase 65 U/L (45-117); Aspartate Amino Transferase 35 U/L (0-37); Bilirubin,Indirect 0.8 MG/DL (0.0-1.0); Blood Urea Nitrogen 28 MG/DL (7-18); Calcium 8.3 MG/DL (8.5-10.1); Carbon Dioxide 27 MMOL/L (21-32); Estimated Glom Filtration Rate 103 ML/MIN; Glucose 96 MG/DL (74-106); Osmolality,Calculated 278.8 MOS/KG (273-304); Potassium 4.3 MMOL/L (3.5-5.1); Sodium 137 MMOL/L (136-145); Total Protein 6.5 G/DL (5.0-7.5)
[2020-06-06] MEDS ORDERED: AMIODARONE 200 MG TABLET PO SCH (06:52)
[2020-06-06] MEDS: DOCUSATE SODIUM 100 MG CAPSULE PO SCH (08:35)
[2020-06-06] MEDS: ASPIRIN EC 325 MG TABLET PO SCH (08:35)
[2020-06-06] MEDS: POTASSIUM CHLORIDE 10 MEQ TABLET PO SCH (08:37)
[2020-06-06] MEDS: FERROUS SULFATE 325 MG TABLET PO SCH (08:37)
[2020-06-06] MEDS: ASCORBIC ACID 500 MG TABLET PO SCH ×2 (08:38→21:08)
[2020-06-06] MEDS: PANTOPRAZOLE 40 MG TABLET PO SCH (08:38)
[2020-06-06] MEDS: FUROSEMIDE 40 MG TABLET PO SCH (08:38)
[2020-06-06] MEDS: POLYETHYLENE GLYCOL POWDER 17 GM PACK PO SCH (08:40)
[2020-06-06] MEDS: CHLORHEXIDINE 0.12% ORAL RINSE 60 ML BOTTLE SWISH/SPIT SCH ×2 (08:51→21:12)
[2020-06-06] MEDS: AMIODARONE 200 MG TABLET PO SCH ×2 (08:58→21:03)
[2020-06-06] MEDS: APIXABAN 5 MG TABLET PO SCH ×2 (09:49→21:05)
[2020-06-06] MEDS: ZALEPLON 5 MG CAPSULE PO PRN (21:02)
[2020-06-06] MEDS: ROSUVASTATIN 20 MG TABLET PO SCH (21:05)
[2020-06-06] MEDS: rOPINIRole 4 MG TABLET PO SCH (21:07)
[2020-06-06] MEDS: amLODIPine 5 MG TABLET PO SCH (21:07)
[2020-06-07] MEDS: ALBUTEROL/IPRATROPIUM 3 ML NEB RESP TX SCH ×4 (00:37→20:01)
[2020-06-07] MEDS: oxyCODONE/ACETAMINOPHEN 5-325 MG TABLET PO PRN ×3 (04:33→20:55)
[2020-06-07 07:41] LABS: Basophils % 0.4 % (0.0-0.8); Eosinophils # 0.2 10*3/uL (0.0-0.87); Eosinophils % 1.8 % (0.00-10.9); Hematocrit 26.6 VOL% (42.0-52.0); Hemoglobin 8.3 GM/DL (14.0-18.0); Immature Granulocytes % 2.7 %; Immature Granulocytes Absolute 0.29 #; Lymphocytes # 1.6 10*3/uL (1.4-4.0); Lymphocytes % 15.2 % (21.2-54.2); Mean Corpuscular HGB Conc 31.2 GM/DL (32-36); Mean Corpuscular Volume 92.4 FL (87-102); Mean Platelet Volume 10.4 FL (9.6-12.0); Monocytes % 9.1 % (1.7-12.7); NRBC # 0.09 10*3/uL; Neutrophils % 70.8 % (38.7-73.9); Platelet Count 208 T/CUMM (130-400); Red Blood Count 2.88 MC/CUMM (3.8-5.5); Red Cell Distribution Width 14.4 % (9.3-17.3); White Blood Count 10.8 T/CUMM (4-12)
[2020-06-07 08:09] LABS: Alanine Aminotransferase 78 U/L (16-61); Alkaline Phosphatase 74 U/L (45-117); Aspartate Amino Transferase 33 U/L (0-37); Bilirubin,Indirect 0.4 MG/DL (0.0-1.0); Blood Urea Nitrogen 25 MG/DL (7-18); Calcium 8.7 MG/DL (8.5-10.1); Carbon Dioxide 29 MMOL/L (21-32); Estimated Glom Filtration Rate 102 ML/MIN; Glucose 101 MG/DL (74-106); Osmolality,Calculated 269.4 MOS/KG (273-304); Potassium 4.1 MMOL/L (3.5-5.1); Sodium 133 MMOL/L (136-145); Total Protein 6.9 G/DL (5.0-7.5)
[2020-06-07] MEDS: ASCORBIC ACID 500 MG TABLET PO SCH ×2 (08:21→20:54)
[2020-06-07] MEDS: ASPIRIN EC 81 MG TABLET PO SCH (08:21)
[2020-06-07] MEDS: APIXABAN 5 MG TABLET PO SCH ×2 (08:22→20:55)
[2020-06-07] MEDS: AMIODARONE 200 MG TABLET PO SCH ×2 (08:23→20:55)
[2020-06-07] MEDS: POTASSIUM CHLORIDE 10 MEQ TABLET PO SCH (08:23)
[2020-06-07] MEDS: CHLORHEXIDINE 0.12% ORAL RINSE 60 ML BOTTLE SWISH/SPIT SCH ×2 (08:23→21:01)
[2020-06-07] MEDS: PANTOPRAZOLE 40 MG TABLET PO SCH (08:23)
[2020-06-07] MEDS: DOCUSATE SODIUM 100 MG CAPSULE PO SCH (08:25)
[2020-06-07] MEDS: FERROUS SULFATE 325 MG TABLET PO SCH (08:25)
[2020-06-07] MEDS: POLYETHYLENE GLYCOL POWDER 17 GM PACK PO SCH (08:25)
[2020-06-07] MEDS: FUROSEMIDE 40 MG TABLET PO SCH (08:25)
[2020-06-07] MEDS: amLODIPine 5 MG TABLET PO SCH (20:53)
[2020-06-07] MEDS: rOPINIRole 4 MG TABLET PO SCH (20:53)
[2020-06-07] MEDS: ROSUVASTATIN 20 MG TABLET PO SCH (20:54)
[2020-06-07] MEDS: ZALEPLON 5 MG CAPSULE PO PRN (20:55)
[2020-06-08] MEDS: ALBUTEROL/IPRATROPIUM 3 ML NEB RESP TX SCH ×2 (01:01→07:52)
[2020-06-08] MEDS: oxyCODONE/ACETAMINOPHEN 5-325 MG TABLET PO PRN (01:32)
[2020-06-08 06:05] LABS: Basophils % 0.2 % (0.0-0.8); Eosinophils # 0.2 10*3/uL (0.0-0.87); Eosinophils % 1.7 % (0.00-10.9); Hematocrit 27.4 VOL% (42.0-52.0); Hemoglobin 8.5 GM/DL (14.0-18.0); Immature Granulocytes % 3.2 %; Immature Granulocytes Absolute 0.39 #; Lymphocytes # 2.1 10*3/uL (1.4-4.0); Lymphocytes % 16.9 % (21.2-54.2); Mean Corpuscular Volume 93.8 FL (87-102); NRBC # 0.08 10*3/uL; Platelet Count 242 T/CUMM (130-400); Red Blood Count 2.92 MC/CUMM (3.8-5.5); Red Cell Distribution Width 14.4 % (9.3-17.3); White Blood Count 12.1 T/CUMM (4-12)
[2020-06-08 06:20] LABS: Osmolality,Calculated 270.4 MOS/KG (273-304); Potassium 4.2 MMOL/L (3.5-5.1)
[2020-06-08 06:32] LABS: Eosinophils 3 % (0-10); Hypochromasia 1+; Lymphocytes 12 % (20-55); Microcytosis 1+; Nucleated Red Blood Cells 1 (0-5); Platelet Estimate Adequate; Segmented Neutrophils 80 % (50-85); Total Cells Counted 100
[2020-06-08 07:53] VITALS: BP 116/72
[2020-06-08] MEDS ORDERED: METOPROLOL TARTRATE 25 MG TABLET PO SCH (09:00)
[2020-06-08] MEDS: AMIODARONE 200 MG TABLET PO SCH (09:16)
[2020-06-08] MEDS: DOCUSATE SODIUM 100 MG CAPSULE PO SCH (09:16)
[2020-06-08] MEDS: APIXABAN 5 MG TABLET PO SCH (09:16)
[2020-06-08] MEDS: POTASSIUM CHLORIDE 10 MEQ TABLET PO SCH (09:16)
[2020-06-08] MEDS: ASPIRIN EC 81 MG TABLET PO SCH (09:16)
[2020-06-08] MEDS: FUROSEMIDE 40 MG TABLET PO SCH (09:16)
[2020-06-08] MEDS: FERROUS SULFATE 325 MG TABLET PO SCH (09:16)
[2020-06-08] MEDS: ASCORBIC ACID 500 MG TABLET PO SCH (09:16)
[2020-06-08] MEDS: POLYETHYLENE GLYCOL POWDER 17 GM PACK PO SCH (09:17)
[2020-06-08] MEDS: PANTOPRAZOLE 40 MG TABLET PO SCH (09:17)
[2020-06-08] MEDS: CHLORHEXIDINE 0.12% ORAL RINSE 60 ML BOTTLE SWISH/SPIT SCH (09:17)
== END 2020-06-08 12:05 | disposition home health service (06) | DRG 219 ==
LOC: N.4E 09:24 → N.CVR 06-01 11:10 → N.TELES 06-02 09:32
PROC: CABGAVR (ICD-10-PCS; 2020-06-01 06:45)

== ENCOUNTER 2020-12-14 19:21 | Observation (INO) ==
[2020-12-14] MEDS ORDERED: SODIUM CHLORIDE 0.9% 500 ML IV STA (19:43)
[2020-12-14] MEDS ORDERED: ONDANSETRON 4 MG/2 ML VIAL IV STA (19:43)
[2020-12-14] MEDS ORDERED: KETOROLAC 30 MG/1 ML VIAL IV STA (19:43)
[2020-12-14] MEDS ORDERED: HYDROmorphone 2 MG/1 ML VIAL IV STA (19:43)
[2020-12-14 20:08] LABS: Basophils % 0.2 % (0.0-0.8); Eosinophils # 0.1 10*3/uL (0.0-0.87); Eosinophils % 0.7 % (0.00-10.9); Hematocrit 46.3 VOL% (42.0-52.0); Hemoglobin 15.1 GM/DL (14.0-18.0); Immature Granulocytes % 0.6 %; Immature Granulocytes Absolute 0.09 #; Lymphocytes # 1.2 10*3/uL (1.4-4.0); Lymphocytes % 7.2 % (21.2-54.2); Mean Corpuscular HGB Conc 32.6 GM/DL (32-36); Mean Corpuscular Volume 93.3 FL (87-102); Mean Platelet Volume 9.4 FL (9.6-12.0); Monocytes % 8.4 % (1.7-12.7); Neutrophils % 82.9 % (38.7-73.9); Platelet Count 173 T/CUMM (130-400); Red Blood Count 4.96 MC/CUMM (3.8-5.5); Red Cell Distribution Width 14.8 % (9.3-17.3); White Blood Count 16.2 T/CUMM (4-12)
[2020-12-14 20:14] LABS: Bilirubin,Urine Negative (Negative); Blood, Urine Negative (Negative); Glucose,Urine (UA) Negative (Negative); Ketones,Urine 5 mg/dL (Negative); Mucus,Urine Occasional /LPF (Occasional); Nitrite,Urine Negative (Negative); Protein,Urine Negative; Urine Appearance CLEAR (Clear); Urine Color Straw (Yellow); Urine Specific Gravity 1.014 (1.001-1.035); Urine Urobilinogen < 2.0 EU/DL (0.2-1.0)
[2020-12-14 20:36] LABS: Albumin 3.6 G/DL (3.4-5.0); Bilirubin,Total 0.4 MG/DL (0.20-1.00); Calcium 9.2 MG/DL (8.5-10.1); Osmolality,Calculated 280.7 MOS/KG (273-304); Potassium 4.6 MMOL/L (3.5-5.1)
[2020-12-14] MEDS ORDERED: ACETAMINOPHEN 325 MG TABLET PO PRN (22:47)
[2020-12-14] MEDS ORDERED: ONDANSETRON 4 MG/2 ML VIAL IV PRN (22:47)
[2020-12-14] MEDS ORDERED: PROMETHAZINE 25 MG/1 ML VIAL IM PRN (22:47)
[2020-12-14] MEDS: SODIUM CHLORIDE 0.9% 1,000 ML IV SCH (23:29)
[2020-12-15] MEDS: HYDROmorphone 2 MG/1 ML VIAL IV PRN ×2 (05:30→20:24)
[2020-12-15 05:52] LABS: Basophils % 0.2 % (0.0-0.8); Eosinophils # 0.2 10*3/uL (0.0-0.87); Eosinophils % 1.4 % (0.00-10.9); Hemoglobin 13.5 GM/DL (14.0-18.0); Immature Granulocytes % 0.5 %; Immature Granulocytes Absolute 0.05 #; Lymphocytes # 1.6 10*3/uL (1.4-4.0); Lymphocytes % 14.6 % (21.2-54.2); Mean Corpuscular HGB Conc 32.1 GM/DL (32-36); Mean Corpuscular Volume 95.2 FL (87-102); Mean Platelet Volume 10.3 FL (9.6-12.0); Monocytes % 11.1 % (1.7-12.7); Neutrophils % 72.2 % (38.7-73.9); Platelet Count 171 T/CUMM (130-400); Red Blood Count 4.41 MC/CUMM (3.8-5.5); Red Cell Distribution Width 14.8 % (9.3-17.3); White Blood Count 10.6 T/CUMM (4-12)
[2020-12-15 06:16] LABS: Calcium 8.7 MG/DL (8.5-10.1); Osmolality,Calculated 279.8 MOS/KG (273-304); Potassium 4.1 MMOL/L (3.5-5.1)
[2020-12-15] MEDS ORDERED: FAMOTIDINE 20 MG TABLET PO ONE (06:43)
[2020-12-15] MEDS: METOPROLOL TARTRATE 25 MG TABLET PO SCH (08:42)
[2020-12-15] MEDS: amLODIPine 10 MG TABLET PO SCH (08:42)
[2020-12-15] MEDS: ASCORBIC ACID 500 MG TABLET PO SCH (08:42)
[2020-12-15] MEDS: POTASSIUM CHLORIDE 10 MEQ TABLET PO SCH (08:42)
[2020-12-15] MEDS: ASPIRIN EC 81 MG TABLET PO SCH (08:42)
[2020-12-15] MEDS: SODIUM CHLORIDE 0.9% 1,000 ML IV SCH ×2 (11:16→18:29)
[2020-12-15] MEDS ORDERED: cefTRIAXone 1,000 MG in SODIUM CHLORIDE 0.9% 100 ML IV ONE (13:44)
[2020-12-15] MEDS ORDERED: ONDANSETRON 4 MG/2 ML VIAL ONE (16:38)
[2020-12-15] MEDS ORDERED: ROCURONIUM 50 MG/5 ML VIAL IV ONE (16:38)
[2020-12-15] MEDS ORDERED: fentaNYL 100 MCG/2 ML VIAL ONE (16:38)
[2020-12-15] MEDS ORDERED: DEXAMETHASONE 4 MG/1 ML VIAL ONE (16:38)
[2020-12-15] MEDS ORDERED: SUCCINYLCHOLINE 200 MG/10 ML VIAL ONE (16:38)
[2020-12-15] MEDS ORDERED: propofoL 200 MG/20 ML VIAL IV ONE (16:38)
[2020-12-15] MEDS ORDERED: LIDOCAINE 2% 5 ML VIAL ONE (16:38)
[2020-12-15] MEDS ORDERED: ePHEDrine 50 MG/ML VIAL ONE (17:06)
[2020-12-15] MEDS ORDERED: NEOSTIGMINE 10 MG/10 ML VIAL ONE (17:37)
[2020-12-15] MEDS ORDERED: GLYCOPYRROLATE 0.4 MG/2 ML VIAL ONE (17:37)
[2020-12-15] MEDS ORDERED: SEVOFLURANE 1 UNIT/15 MINUTE INH ONE (17:56)
[2020-12-15] MEDS ORDERED: MELOXICAM 7.5 MG TABLET PO SCH (21:00)
[2020-12-15] MEDS ORDERED: rOPINIRole 4 MG TABLET PO SCH (21:00)
[2020-12-15] MEDS ORDERED: PANTOPRAZOLE 40 MG TABLET PO SCH (21:00)
[2020-12-16] MEDS: HYDROmorphone 2 MG/1 ML VIAL IV PRN (00:01)
[2020-12-16] MEDS: SODIUM CHLORIDE 0.9% 1,000 ML IV SCH (05:11)
[2020-12-16 07:50] VITALS: BP 125/65
[2020-12-16 08:28] LABS: Basophils % 0.1 % (0.0-0.8); Eosinophils % 0.1 % (0.00-10.9); Hematocrit 43.7 VOL% (42.0-52.0); Hemoglobin 14.1 GM/DL (14.0-18.0); Immature Granulocytes % 0.7 %; Immature Granulocytes Absolute 0.08 #; Lymphocytes # 1.1 10*3/uL (1.4-4.0); Lymphocytes % 10.1 % (21.2-54.2); Mean Corpuscular HGB Conc 32.3 GM/DL (32-36); Mean Corpuscular Volume 93.8 FL (87-102); Mean Platelet Volume 9.8 FL (9.6-12.0); Monocytes % 6.1 % (1.7-12.7); Neutrophils % 82.9 % (38.7-73.9); Platelet Count 185 T/CUMM (130-400); Red Blood Count 4.66 MC/CUMM (3.8-5.5); Red Cell Distribution Width 14.6 % (9.3-17.3); White Blood Count 10.9 T/CUMM (4-12)
[2020-12-16] MEDS: ASCORBIC ACID 500 MG TABLET PO SCH (08:34)
[2020-12-16] MEDS: amLODIPine 10 MG TABLET PO SCH (08:34)
[2020-12-16] MEDS: METOPROLOL TARTRATE 25 MG TABLET PO SCH (08:35)
[2020-12-16] MEDS: ASPIRIN EC 81 MG TABLET PO SCH (08:35)
[2020-12-16] MEDS: POTASSIUM CHLORIDE 10 MEQ TABLET PO SCH (08:35)
[2020-12-16 08:42] LABS: Calcium 8.8 MG/DL (8.5-10.1); Osmolality,Calculated 279.5 MOS/KG (273-304); Potassium 4.7 MMOL/L (3.5-5.1)
[2020-12-16] MEDS ORDERED: ROSUVASTATIN 20 MG TABLET PO SCH (09:00)
[2020-12-22 13:44] LABS: Stone Analysis Interpretation SEE COMMENTS; Stone Source Kidney
== END 2020-12-16 12:00 | disposition home or self-care (01) ==
LOC: N.ED 19:21 → N.EDINP 19:21 → N.3E 22:44
PROVIDERS: ADMIT Surgery; ATTEND Surgery

== ENCOUNTER 2021-07-13 13:43 | Observation (INO) ==
[2021-07-13] MEDS ORDERED: SODIUM CHLORIDE 0.9% 1,000 ML IV STA (14:21)
[2021-07-13 14:29] LABS: Basophils # 0.1 10*3/uL (0.0-0.2); Basophils % 0.4 % (0.0-0.8); Eosinophils # 0.1 10*3/uL (0.0-0.87); Eosinophils % 0.4 % (0.00-10.9); Hematocrit 49.8 VOL% (42.0-52.0); Hemoglobin 16.1 GM/DL (14.0-18.0); Immature Granulocytes % 0.9 %; Immature Granulocytes Absolute 0.12 #; Lymphocytes # 1.7 10*3/uL (1.4-4.0); Lymphocytes % 13.3 % (21.2-54.2); Mean Corpuscular HGB Conc 32.3 GM/DL (32-36); Mean Platelet Volume 9.7 FL (9.6-12.0); Monocytes # 0.8 10*3/uL (0.11-0.8); Monocytes % 6.4 % (1.7-12.7); Neutrophils % 78.6 % (38.7-73.9); Platelet Count 181 T/CUMM (130-400); Red Cell Distribution Width 14.2 % (9.3-17.3); White Blood Count 13.1 T/CUMM (4-12)
[2021-07-13 14:37] LABS: PT Patient Result 11.1 SECS (10.5-12.0); Partial Thromboplastin Time 25.8 SECS (23.8-32.1)
[2021-07-13 14:42] LABS: Bilirubin,Total 0.4 MG/DL (0.20-1.00); Calcium 8.9 MG/DL (8.5-10.1); Osmolality,Calculated 273.1 MOS/KG (273-304); Potassium 4.1 MMOL/L (3.5-5.1); Total Protein 7.1 G/DL (6.4-8.2)
[2021-07-13 14:59] LABS: Mucus,Urine Occasional /LPF (Occasional); RBC,Urine <1 /HPF (0-4); Sperm,Urine Occasional /HPF (Negative)
[2021-07-13 15:00] LABS: Urine Appearance Clear (Clear); Urine Color Yellow (Yellow)
[2021-07-13 15:01] LABS: Bilirubin,Urine Negative (Negative); Blood, Urine Negative (Negative); Glucose,Urine (UA) Negative (Negative); Ketones,Urine Negative (Negative); Nitrite,Urine Negative (Negative); Protein,Urine 1+ mg/dL (Negative); Urine Specific Gravity 1.029 (1.001-1.035); Urine Urobilinogen 0.2 eU/dL (<2.0)
[2021-07-13 15:04] LABS: Risk Ratio 3.48
[2021-07-13 15:53] LABS: Barbiturates Screen,Urine Negative (Negative); Benzodiazepines Screen,Urine Negative (Negative); Cannabinoid Screen,Urine Negative (Negative); Opiate Screen,Urine Negative (Negative); Phencyclidine Screen,Urine Negative (Negative)
[2021-07-13] MEDS ORDERED: amLODIPine 5 MG TABLET PO STA (16:10)
[2021-07-13] MEDS ORDERED: METOPROLOL TARTRATE 25 MG TABLET PO STA (16:11)
[2021-07-13] MEDS ORDERED: diphenhydrAMINE CAP 25 MG CAPSULE PO PRN (16:43)
[2021-07-13] MEDS ORDERED: ONDANSETRON 4 MG/2 ML VIAL IV PRN (16:43)
[2021-07-13] MEDS ORDERED: guaiFENesin/DM ER 600-30 MG TABLET PO PRN (16:43)
[2021-07-13] MEDS ORDERED: NICOTINE 21 MG/24 HR PATCH TRANSDERM PRN (16:43)
[2021-07-13] MEDS ORDERED: GLUCAGON 1 MG VIAL IM PRN (16:43)
[2021-07-13] MEDS ORDERED: ACETAMINOPHEN 325 MG TABLET PO PRN (16:43)
[2021-07-13] MEDS ORDERED: DEXTROSE 10% 250 ML BAG IV PRN (16:57)
[2021-07-13] MEDS: hydrALAZINE 20 MG/1 ML VIAL IV PRN ×2 (17:15→18:19)
[2021-07-13] MEDS ORDERED: rOPINIRole 1 MG TABLET PO SCH (21:00)
[2021-07-13] MEDS: THIAMINE 100 MG TABLET PO SCH (21:13)
[2021-07-13] MEDS: FOLIC ACID 1 MG TABLET PO SCH (21:14)
[2021-07-14] MEDS: HEPARIN 5,000 UNIT/1 ML VIAL SUBCUT SCH ×2 (06:04→07:54)
[2021-07-14 06:22] LABS: Basophils % 0.1 % (0.0-0.8); Eosinophils # 0.1 10*3/uL (0.0-0.87); Eosinophils % 0.8 % (0.00-10.9); Hematocrit 47.3 VOL% (42.0-52.0); Hemoglobin 15.2 GM/DL (14.0-18.0); Immature Granulocytes % 0.7 %; Immature Granulocytes Absolute 0.06 #; Lymphocytes # 1.7 10*3/uL (1.4-4.0); Lymphocytes % 19.8 % (21.2-54.2); Mean Corpuscular HGB Conc 32.1 GM/DL (32-36); Mean Corpuscular Volume 93.8 FL (87-102); Monocytes # 0.8 10*3/uL (0.11-0.8); Monocytes % 9.5 % (1.7-12.7); Neutrophils % 69.1 % (38.7-73.9); Platelet Count 172 T/CUMM (130-400); Red Blood Count 5.04 MC/CUMM (3.8-5.5); Red Cell Distribution Width 14.7 % (9.3-17.3); White Blood Count 8.3 T/CUMM (4-12)
[2021-07-14] MEDS ORDERED: LEVOTHYROXINE 75 MCG TABLET PO SCH (06:30)
[2021-07-14 06:38] LABS: Calcium 8.8 MG/DL (8.5-10.1); Osmolality,Calculated 278.5 MOS/KG (273-304); Potassium 3.9 MMOL/L (3.5-5.1)
[2021-07-14] MEDS: FOLIC ACID 1 MG TABLET PO SCH (08:41)
[2021-07-14] MEDS: THIAMINE 100 MG TABLET PO SCH (08:41)
[2021-07-14] MEDS ORDERED: PANTOPRAZOLE 40 MG TABLET PO SCH (09:00)
[2021-07-14] MEDS ORDERED: METOPROLOL TARTRATE 25 MG TABLET PO SCH (09:00)
[2021-07-14] MEDS ORDERED: ASPIRIN EC 81 MG TABLET PO SCH (09:00)
[2021-07-14] MEDS ORDERED: amLODIPine 10 MG TABLET PO SCH (09:00)
[2021-07-14] MEDS ORDERED: MULTIVITAMIN (CENTRUM) TABLET PO SCH (09:00)
[2021-07-14 12:08] VITALS: BP 148/82
== END 2021-07-14 14:44 | disposition home or self-care (01) ==
LOC: EDUNIT# → EDBD → N.ED 13:43 → N.EDINP 13:43 → SUATTDRO 16:43 → N.5E 18:02
PROVIDERS: ADMIT Internal Medicine; ATTEND Hospitalist